=== PATIENT | female | born 1970 | race Caucasian/White ===

== ENCOUNTER → 2016-11-21 | Outpatient (CLI) | payer BC ==
--- NOTE | 2016-11-28 07:11 | MM ---
Reason for exam: screening (asymptomatic). Last mammogram was performed 13 years ago. Physical Findings: A clinical breast exam by your physician is recommended on an annual basis and results should be correlated with mammographic findings. MG Screening Mammo w CAD Bilateral CC and MLO view(s) were taken. No prior studies available for comparison. The breast tissue is heterogeneously dense. This may lower the sensitivity of mammography. Finding: There are diffuse/scattered calcifications consistent with sclerosing adenosis. ASSESSMENT: Benign, BI-RAD 2 RECOMMENDATION: Routine screening mammogram of both breasts in 1 year.
== END | disposition home or self-care (01) ==
LOC: RADMAMWWP 08:58
PROVIDERS: ATTEND Family Medicine
DX: Z12.31 Encounter for screening mammogram for malignant neoplasm of breast (principal)

== ENCOUNTER → 2017-03-18 | Outpatient (CLI) | payer BC ==
--- NOTE | 2017-03-19 07:41 | USB ---
Reason for exam: clinical finding. Indicated problem(s): lump or thickening in both breasts. Physical Findings: Nurse Summary: Patient complains of left breast lump x 2 weeks, doctor felt lump in the right breast (nurse mj). US Breast BILAT Right breast ultrasound includes all four quadrants, the retroareolar region and axilla. Finding demonstrates a 1.0 x 0.9 x 0.6cm cystic lesion at 5 o'clock, a 0.7 x 0.9 x 0.5cm cystic lesion at 8 o'clock and a 1.4 x 1.2 x 1.2cm mixed lesion at 10 o'clock. Left breast ultrasound includes all four quadrants, the retroareolar region and axilla. Finding demonstrates a 0.4 x 0.4 x 0.3cm hypoechoic lesion at 9 o'clock, a 2.0 x 2.3 x 1.3cm cystic lesion at 1 o'clock and a 0.6 x 0.6 x 0.3cm mixed lesion at 2 o'clock. These results were verbally communicated with the patient and result sheet given to the patient on 03/18/17. ASSESSMENT: Probably benign, BI-RAD 3 RECOMMENDATION: Ultrasound of both breasts in 6 months. Manage patient on a clinical basis.
== END | disposition home or self-care (01) ==
LOC: RADUSWWP 15:32
PROVIDERS: ATTEND Family Medicine
DX: N63.10 Unspecified lump in the right breast, unspecified quadrant (principal); N63.20 Unspecified lump in the left breast, unspecified quadrant

== ENCOUNTER 2019-06-11 07:27 | Observation (INO) | payer BC ==
[2019-06-11] MEDS ORDERED: NITROGLYCERIN SL TABS 0.4 MG TAB SUBLINGUAL STA (07:44)
[2019-06-11] MEDS ORDERED: ASPIRIN 81 MG PO STA (07:44)
[2019-06-11 08:17] LABS: Basophils % (A) 1 %; Eosinophils # (A) 0.1 k/uL (0-0.7); Eosinophils % (A) 3 %; HCT 43.3 % (34.0-46.0); HGB 13.8 gm/dL (11.4-16.0); Lymphocytes # (A) 1.3 k/uL (1.0-4.8); Lymphocytes % (A) 38 %; MCH 28.8 pg (25.0-35.0); MCV 90.1 fL (80.0-100.0); Mean Platelet Volume 7.1; Monocytes # (A) 0.2 k/uL (0-1.0); Monocytes % (A) 6 %; Neutrophils # (A) 1.7 k/uL (1.3-7.7); Neutrophils % (A) 50 %; Platelet Count 282 k/uL (150-450); RDW 12.3 % (11.5-15.5); WBC 3.4 k/uL (3.8-10.6)
--- NOTE | 2019-06-11 08:17 | XR ---
EXAMINATION TYPE: XR chest 2V DATE OF EXAM: 06/11/2019 COMPARISON: NONE HISTORY: Chest pain TECHNIQUE: Frontal and lateral views of the chest are obtained. FINDINGS: There is no focal air space opacity, pleural effusion, or pneumothorax seen. The cardiac silhouette size is within normal limits. The osseous structures are intact. Mild degenerative vargas e of the spine. IMPRESSION: No acute cardiopulmonary process.
[2019-06-11 08:22] LABS: Partial Thromboplastin Time 25.5 sec (22.0-30.0); Prothrombin Time 10.6 sec (9.0-12.0)
[2019-06-11 08:24] LABS: ALT 20 U/L (4-34); AST 26 U/L (14-36); African American GFR (CKD) >90 (>60 ml/min/1.73 sqM); Albumin 4.4 g/dL (3.5-5.0); Alkaline Phosphatase 49 U/L (38-126); Anion Gap 9 mmol/L; Blood Urea Nitrogen 15 mg/dL (7-17); Calcium 9.5 mg/dL (8.4-10.2); Carbon Dioxide 25 mmol/L (22-30); Chloride 106 mmol/L (98-107); Glucose 89 mg/dL (74-99); Magnesium 2.2 mg/dL (1.6-2.3); Non-African American GFR(CKD) 82 (>60 ml/min/1.73 sqM); Potassium 4.1 mmol/L (3.5-5.1); Sodium 140 mmol/L (137-145); Total Bilirubin 0.8 mg/dL (0.2-1.3); Total Protein 7.3 g/dL (6.3-8.2)
[2019-06-11] MEDS ORDERED: ACETAMINOPHEN TAB 325 MG TAB PO STA (08:41)
--- NOTE | 2019-06-11 08:50 | ED ---
Chest Pain HPI - General Chief Complaint: Chest Pain Stated Complaint: chest pain Time Seen by Provider: 06/11/19 07:38 Source: patient, RN notes reviewed Mode of arrival: ambulatory Limitations: no limitations - History of Present Illness Initial Comments: 49-year-old female presents emergency Department chief complaint of chest pain. Patient states pain started this morning while driving to work he did worsen at work. She states is left-sided not exacerbated by movement or deep inspiration or shortness of breath. She has no prior cardiac disease including denies hyperlipidemia, hypertension, diabetes. Patient denies any family cardiac disease. Denies any current nausea vomiting. did state the pain radiated to her left shoulder - Related Data Home Medications Medication Instructions Recorded Confirmed Ascorbic Acid [Vitamin C] 500 mg PO DAILY 06/11/19 06/11/19 Cetirizine HCl [Zyrtec] 10 mg PO DAILY 06/11/19 06/11/19 Cholecalciferol [Vitamin D3 (25 1,000 unit PO DAILY 06/11/19 06/11/19 Mcg = 1000 Iu)] Fluticasone Nasal [place] [Flonase 1 spray EA NOSTRIL DAILY 06/11/19 06/11/19 Nasal [place]] L.acidoph,Paracasei, B.lactis 1 cap PO DAILY 06/11/19 06/11/19 [Probiotic] [place]-3 Fatty Acids/Fish Oil [Fish 1 cap PO DAILY 06/11/19 06/11/19 Oil 1,000 mg Softgel] Vitamin E 100 unit PO DAILY 06/11/19 06/11/19 Allergies Allergy/AdvReac Type Severity Reaction Status Date / Time Beef Containing Products AdvReac Nausea & Verified 06/11/19 08:32 [Beef] Vomiting & Diarrhea carrot AdvReac Nausea & Verified 06/11/19 08:32 Vomiting & Diarrhea [place] And Derivatives AdvReac Nausea & Verified 06/11/19 08:32 [[place]] Vomiting & Diarrhea Milk Containing Products AdvReac Nausea & Verified 06/11/19 08:32 Vomiting & Diarrhea GREEN BEANS AdvReac Nausea & Uncoded 06/11/19 08:32 Vomiting & Diarrhea Review of Systems ROS Statement: Those systems with pertinent positive or pertinent negative responses have been documented in the HPI. ROS Other: All systems not noted in ROS Statement are negative. EKG Findings - EKG Comments: EKG Findings:: EKG performed at 7:40 normal sinus rhythm rate of 61 HI 138 QRS 88 QT status QTC [id number] depression in inferolateral leads no prior EKG to compare to Past Medical History Past Medical History: No Reported History History of Any Multi-Drug Resistant Organisms: None Reported Past Surgical History: Hernia Repair, Hysterectomy Past Psychological History: No Psychological Hx Reported Smoking Status: Current some day smoker Past Alcohol Use History: Occasional Past Drug Use History: None Reported General Exam Limitations: no limitations General appearance: alert, in no apparent distress Head exam: Present: atraumatic, normocephalic, normal inspection Eye exam: Present: normal appearance, PERRL, EOMI. Absent: scleral icterus, conjunctival injection, periorbital swelling ENT exam: Present: normal exam, mucous membranes moist Neck exam: Present: normal inspection, full ROM. Absent: tenderness, meningismus, lymphadenopathy Respiratory exam: Present: normal lung sounds bilaterally. Absent: respiratory distress, wheezes, rales, rhonchi, stridor Cardiovascular Exam: Present: regular rate, normal rhythm, normal heart sounds. Absent: systolic murmur, diastolic murmur, rubs, gallop, clicks GI/Abdominal exam: Present: soft, normal bowel sounds. Absent: distended, tenderness, guarding, rebound, rigid Neurological exam: Present: alert, oriented X3, CN II-XII intact Skin exam: Present: warm, dry, intact, normal color. Absent: rash Course Vital Signs 06/11/19 06/11/19 06/11/19 07:30 07:56 07:59 Temperature 98.3 F Pulse Rate 71 Pulse Rate [ 58 L [place] [employer]vester ] Respiratory 20 16 Rate Blood Pressure 117/84 O2 Sat by Pulse 99 Oximetry 06/11/19 08:32 Temperature Pulse Rate 66 Pulse Rate [ [employer]vester ] Respiratory 16 Rate Blood Pressure 104/76 O2 Sat by Pulse 97 Oximetry Chest Pain MDM - MDM Patient had complete relief of her symptoms after nitro. Patient has no significant cardiac history though this is concerning for unstable angina. Patient will admitted for echocardiogram, further evaluation repeat troponin. Disposition Clinical Impression: Unstable angina Disposition: ADMITTED IP TO THIS HOSP Condition: Fair Referrals: Richard Navarrete DO [Primary Care Provider] - 1-2 days
[2019-06-11] MEDS ORDERED: NITROGLYCERIN SL TABS 0.4 MG TAB SUBLINGUAL PRN (09:58)
[2019-06-11] MEDS ORDERED: HEPARIN SODIUM,PORCINE 5,000 UNIT/ML 1 ML VIAL IV ONE (09:58)
[2019-06-11] MEDS ORDERED: HEPARIN SODIUM,PORCINE 5,000 UNIT/ML 1 ML VIAL IV PRN (09:58)
[2019-06-11] MEDS ORDERED: HEPARIN SOD,PORK IN 0.45% NACL 25,000 UNIT in 0.45% NACL 1 250ML.BAG IV SCH (10:00)
[2019-06-11 11:18] VITALS: RESP 18
--- NOTE | 2019-06-11 12:34 | ECHOF ---
Referral Reason:chest pain MEASUREMENTS -------- HEIGHT: 172.7 cm WEIGHT: 68.9 kg BP: 104/76 RVIDd: 3.3 cm (< 3.3) IVSd: 1.0 cm (0.6 - 1.1) LVIDd: 4.2 cm (3.9 - 5.3) LVPWd: 1.2 cm (0.6 - 1.1) IVSs: 1.3 cm LVIDs: 2.8 cm LVPWs: 1.5 cm LAESV Index (A-L): 26.88 ml/m Ao Diam: 2.6 cm (2.0 - 3.7) AV Cusp: 1.8 cm (1.5 - 2.6) LA Diam: 2.2 cm (2.7 - 3.8) MV EXCURSION: 18.414 mm (> 18.000) MV EF SLOPE: 128 mm/s (70 - 150) EPSS: 0.5 cm MV E Sascha: 0.80 m/s MV DecT: 146 ms MV A Sascha: 0.69 m/s MV E/A Ratio: 1.17 AR PHT: 625 ms RAP: 5.00 mmHg RVSP: 27.74 mmHg FINDINGS -------- Sinus rhythm. This was a technically good study. The left ventricular size is normal. There is mild concentric left ventricular hypertrophy. Overa ll left ventricular systolic function is normal with, an EF between 60 - 65 %. The diastolic fillin g pattern is normal for the age of the patient 8.65. The right ventricle is mildly enlarged. Normal LA size by volume 22+/-6 ml/m2. The right atrial size is normal. Interatrial and interventricular septum intact. The aortic valve was not well visualized. Trace amount of aortic regurgitation. There is no evid ence of aortic stenosis. Mild mitral regurgitation is present. Mild tricuspid regurgitation present. There is no evidence of pulmonary hypertension. The right v entricular systolic pressure, as measured by Doppler, is 27.74mmHg. There is no pulmonic regurgitation present. The aortic root size is normal. The inferior vena cava is mildly dilated. There is no pericardial effusion. CONCLUSIONS -------- 1. Sinus rhythm. 2. This was a technically good study. 3. The left ventricular size is normal. 4. There is mild concentric left ventricular hypertrophy. 5. Overall left ventricular systolic function is normal with, an EF between 60 - 65 %. 6. The diastolic filling pattern is normal for the age of the patient 8.65 7. The right ventricle is mildly enlarged. 8. Normal LA size by volume 22+/-6 ml/m2. 9. The right atrial size is normal. 10. Interatrial and interventricular septum intact. 11. The aortic valve was not well visualized. 12. Trace amount of aortic regurgitation. 13. There is no evidence of aortic stenosis. 14. Mild mitral regurgitation is present. 15. Mild tricuspid regurgitation present. 16. There is no evidence of pulmonary hypertension. 17. The right ventricular systolic pressure, as measured by Doppler, is 27.74mmHg. 18. There is no pulmonic regurgitation present. 19. The aortic root size is normal. 20. The inferior vena cava is mildly dilated. 21. There is no pericardial effusion. SET DESIGNER: Rosanne Cha RDCS
--- NOTE | 2019-06-11 14:00 | P.CRDCN ---
History of Present Illness History of present illness: HISTORY OF PRESENTING ILLNESS This is a pleasant 49-year-old female with no significant past medical history. She does smoke a cigarette a couple times a month. She denies prior history of coronary artery disease, hypertension, dyslipidemia or diabetes mellitus and does not follow with a shipboard intelligence analyst for any reason. We have been asked to see in consultation for chest pain. He states this morning while she was driving to work she developed a squeezing pain in the left precordial region with radiation to the left shoulder. She denies associated shortness of breath, dizziness, nausea, vomiting, diaphoresis or palpitations. The symptoms persisted so she came to the emergency department for evaluation. Upon arrival she was given nitroglycerin and aspirin which did relieve her symptoms. She has had no further symptoms of chest discomfort since arriving at the hospital. Echocardiogram obtained reveals preserved LV systolic function with ejection fraction 60-65%, mild MR and TR noted. DIAGNOSTICS EKG reveals sinus bradycardia heart rate of [address] changes. Chest xray negative for an acute cardiopulmonary process. Laboratory reviewed, WBC 3.4, hemoglobin 13.8, platelets 282, sodium 140, potassium 4.1, creatinine 0.85, magnesium 2.2, cardiac enzymes negative 2. She takes no daily cardiac medications. REVIEW OF SYSTEMS At the time of my exam: CONSTITUTIONAL: Denies fever or chills. CARDIOVASCULAR: Denies chest pain, shortness of breath, orthopnea, PND or palpitations. RESPIRATORY: Denies cough. GASTROINTESTINAL: Denies abdominal pain, diarrhea, constipation, nausea or vomiting. MUSCULOSKELETAL: Denies myalgias. NEUROLOGIC: Denies numbness, tingling or weakness. ENDOCRINE: Denies fatigue, weight change, polydipsia or polyurina. GENITOURINARY: Denies burning, hematuria or urgency with micturation. HEMATOLOGIC: Denies history of anemia or bleeding. PHYSICAL EXAMINATION Blood pressure 134/83 heart rate 57 afebrile and maintaining oxygen saturation on room air. CONSTITUTIONAL: No apparent distress. HEENT: Head is normocephalic. Pupils are equal, round. Sclerae anicteric. Mucous membranes of the mouth are moist. No JVD. No carotid bruit. CHEST EXAMINATION: Lungs are clear to auscultation. No chest wall tenderness is noted on palpation or with deep breathing. HEART EXAMINATION: Regular rate and rhythm. S1, S2 heard. No murmurs, gallops or rub. ABDOMEN: Soft, nontender. Positive bowel sounds. EXTREMITIES: 2+ peripheral pulses, no lower extremity edema and no calf tenderness. NEUROLOGIC EXAMINATION: Patient is awake, alert and oriented x3. ASSESSMENT Chest pain, atypical for angina. An acute coronary event has been ruled out with no EKG evidence of ischemia and negative cardiac enzymes. PLAN An acute coronary event has been ruled out. Perform stress echocardiogram to assess for stress-induced cardiac ischemia. If stress test is normal she is stable for discharge from a cardiac perspective. Thank you kindly for this consultation. Nurse Practitioner note has been reviewed, I agree with a documented findings and plan of care. Patient was seen and examined. Past Medical History Past Medical History: Osteoarthritis (OA) Additional Past Medical History / Comment(s): Sinus problems, arthritis and labral tear R hip History of Any Multi-Drug Resistant Organisms: None Reported Past Surgical History: Hernia Repair, Hysterectomy Additional Past Surgical History / Comment(s): Hiatal hernia, partial hysterectomy with bladder suspension. Past Anesthesia/Blood Transfusion Reactions: No Reported Reaction Smoking Status: Current some day smoker - Past Family History Father Family Medical History: Cancer Additional Family Medical History / Comment(s): Father of pancreatic cancer. Mother Family Medical History: No Reported History Additional Family Medical History / Comment(s): Mother is healthy Medications and Allergies Home Medications Medication Instructions Recorded Confirmed Type Ascorbic Acid [Vitamin C] 500 mg PO DAILY 06/11/19 06/11/19 History Cetirizine HCl [Zyrtec] 10 mg PO DAILY 06/11/19 06/11/19 History Cholecalciferol [Vitamin D3 (25 1,000 unit PO DAILY 06/11/19 06/11/19 History Mcg = 1000 Iu)] Fluticasone Nasal [place] [Flonase 1 spray EA NOSTRIL DAILY 06/11/19 06/11/19 History Nasal [place]] L.acidoph,Paracasei, B.lactis 1 cap PO DAILY 06/11/19 06/11/19 History [Probiotic] [place]-3 Fatty Acids/Fish Oil [Fish 1 cap PO DAILY 06/11/19 06/11/19 History Oil 1,000 mg Softgel] Vitamin E 100 unit PO DAILY 06/11/19 06/11/19 History Allergies Allergy/AdvReac Type Severity Reaction Status Date / Time Beef Containing Products AdvReac Nausea & Verified 06/11/19 08:32 [Beef] Vomiting & Diarrhea carrot AdvReac Nausea & Verified 06/11/19 08:32 Vomiting & Diarrhea [place] And Derivatives AdvReac Nausea & Verified 06/11/19 08:32 [[place]] Vomiting & Diarrhea Milk Containing Products AdvReac Nausea & Verified 06/11/19 08:32 Vomiting & Diarrhea GREEN [place] AdvReac Nausea & Uncoded 06/11/19 08:32 Vomiting & Diarrhea Physical Exam Vitals: Vital Signs Temp Pulse Pulse Pulse Resp BP BP 06/11/19 12:00 58 L 57 L 18 06/11/19 11:16 98.0 F 57 L 18 134/83 06/11/19 08:32 66 16 104/76 06/11/19 07:59 16 06/11/19 07:56 58 L 06/11/19 07:30 98.3 F 71 20 117/84 Pulse Ox 06/11/19 12:00 06/11/19 11:16 98 06/11/19 08:32 97 06/11/19 07:59 06/11/19 07:56 06/11/19 07:30 99 Intake and Output 06/10/19 06/11/19 06/11/19 22:59 06:59 14:59 Other: Voiding Method Toilet Weight 68.946 kg Results 06/11/19 07:49 06/11/19 07:49 Cardiac Enzymes 06/11/19 06/11/19 06/11/19 Range/Units 07:49 07:49 11:55 AST 26 (14-36) U/L Troponin I <0.012 <0.012 (0.000-0.034) ng/mL Coagulation 06/11/19 Range/Units 07:49 PT 10.6 (9.0-12.0) sec APTT 25.5 (22.0-30.0) sec CBC 06/11/19 Range/Units 07:49 WBC 3.4 L (3.8-10.6) k/uL RBC 4.80 (3.80-5.40) m/uL Hgb 13.8 (11.4-16.0) gm/dL Hct 43.3 (34.0-46.0) % Plt Count 282 (150-450) k/uL Comprehensive Metabolic Panel 06/11/19 Range/Units 07:49 Sodium 140 (137-145) mmol/L Potassium 4.1 (3.5-5.1) mmol/L Chloride 106 (98-107) mmol/L Carbon Dioxide 25 (22-30) mmol/L BUN 15 (7-17) mg/dL Creatinine 0.85 (0.52-1.04) mg/dL Glucose 89 (74-99) mg/dL Calcium 9.5 (8.4-10.2) mg/dL AST 26 (14-36) U/L ALT 20 (4-34) U/L Alkaline Phosphatase 49 (38-126) U/L Total Protein 7.3 (6.3-8.2) g/dL Albumin 4.4 (3.5-5.0) g/dL Current Medications Generic Name Dose Route Start Last Admin Trade Name Freq PRN Reason Stop Dose Admin Aspirin 325 mg 06/12/19 09:00 Aspirin PO DAILY ERIN Heparin Sodium (Porcine) 0 unit 06/11/19 09:58 Heparin IV Q6HR PRN Low PTT Protocol Nitroglycerin 0.4 mg 06/11/19 09:58 Nitrostat SUBLINGUAL Q5M PRN Chest Pain Intake and Output 06/10/19 06/11/19 06/11/19 22:59 06:59 14:59 Other: Voiding Method Toilet Weight 68.946 kg Patient Weight 06/12/19 06:59 Weight 68.946 kg 06/11/19 07:49 06/11/19 07:49
[2019-06-11 16:28] VITALS: BP 135/81; TEMP 98
[2019-06-11 16:41] VITALS: PULSE 58
[2019-06-12] MEDS ORDERED: ASPIRIN 325 MG TAB PO SCH (09:00)
--- NOTE | 2019-06-12 23:38 | P.HPIM ---
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 Unremarkable possible history of the active. Except some chronic pain in the right hip. 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 Also in the infrascap ular area. It also went down the left arm. The was no associated dizziness lightheadedness shortness of breath of perspiration. No fever or chills. Patient did not remember any excessive physical activity. Denies any prior cardiac activity. Given the presentation location discharge to come in to get checked out. 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 Smokes occasionally. . Physical examination: VITAL SIGNS: 98.3, 71, 20, 1 once over 84, 99% room air GENERAL: BMI 23.1 sitting up, comfortable. EYES: Pupils equal. Conjunctiva normal. HEENT: External appearance of nose and ears normal, oral cavity grossly normal. NECK: JVD not raised; masses not palpable. HEART: First and second heart sounds are normal; no edema. LUNGS: Respiratory rate normal; clear to auscultation. ABDOMEN: Soft, nontender, liver spleen not palpable, no masses palpable. PSYCH: Alert and oriented x3; mood and affect normal. Muscular skeletal: No pain in the left shoulder with movements in any direction no localized tenderness. NEUROLOGICAL: Cranial nerves grossly intact; no facial asymmetry, power and sensation grossly intact. LYMPHATICS: No lymph nodes palpable in the axilla and neck INVESTIGATIONS, reviewed in the clinical context: White count 3.4 hemoglobin 13.8 platelets 22 potassium 4.1 creatinine 0.85 Troponin I negative EKG tracing normal sinus rhythm Chest x-ray film personally reviewed by me-lung bhatt clear Assessment: -Left infraclavicular chest wall pain with some radiation to left arm, possibly musculoskeletal but cannot rule out a cardiac cause -Right hip arthritis -Occasional nicotine use in the form of cigarettes Plan: Cardiology were consulted. They ordered an echocardiogram and a stress echocardiogram. Past Medical History Past Medical History: No Reported History History of Any Multi-Drug Resistant Organisms: None Reported Past Surgical History: Hernia Repair, Hysterectomy Past Psychological History: No Psychological Hx Reported Smoking Status: Current some day smoker Past Alcohol Use History: Occasional Past Drug Use History: None Reported - Past Family History Father Family Medical History: Cancer Additional Family Medical History / Comment(s): Father of pancreatic cancer. Mother Family Medical History: No Reported History Additional Family Medical History / Comment(s): Mother is healthy Medications and Allergies Home Medications Medication Instructions Recorded Confirmed Type Ascorbic Acid [Vitamin C] 500 mg PO DAILY 06/11/19 06/11/19 History Cetirizine HCl [Zyrtec] 10 mg PO DAILY 06/11/19 06/11/19 History Cholecalciferol [Vitamin D3 (25 1,000 unit PO DAILY 06/11/19 06/11/19 History Mcg = 1000 Iu)] Fluticasone Nasal [place] [Flonase 1 spray EA NOSTRIL DAILY 06/11/19 06/11/19 History Nasal [place]] L.acidoph,Paracasei, B.lactis 1 cap PO DAILY 06/11/19 06/11/19 History [Probiotic] [place]-3 Fatty Acids/Fish Oil [Fish 1 cap PO DAILY 06/11/19 06/11/19 History Oil 1,000 mg Softgel] Vitamin E 100 unit PO DAILY 06/11/19 06/11/19 History Allergies Allergy/AdvReac Type Severity Reaction Status Date / Time Beef Containing Products AdvReac Nausea & Verified 06/11/19 08:32 [Beef] Vomiting & Diarrhea carrot AdvReac Nausea & Verified 06/11/19 08:32 Vomiting & Diarrhea [place] And Derivatives AdvReac Nausea & Verified 06/11/19 08:32 [[place]] Vomiting & Diarrhea Milk Containing Products AdvReac Nausea & Verified 06/11/19 08:32 Vomiting & Diarrhea [place] AdvReac Nausea & Uncoded 06/11/19 08:32 Vomiting & Diarrhea Physical Exam Vitals: Vital Signs Temp Pulse Pulse Resp BP Pulse Ox 06/11/19 08:32 66 16 104/76 97 06/11/19 07:59 16 06/11/19 07:56 58 L 06/11/19 07:30 98.3 F 71 20 117/84 99 Intake and Output 06/10/19 06/11/19 06/11/19 22:59 06:59 14:59 Other: Weight 68.946 kg Results CBC & Chem 7: 06/11/19 07:49 06/11/19 07:49 Labs: Abnormal Lab Results - Last 24 Hours (Table) 06/11/19 Range/Units 07:49 WBC 3.4 L (3.8-10.6) k/uL
--- NOTE | 2019-06-12 23:40 | P.DS ---
Providers Date of admission: 06/11/19 10:02 Expected date of discharge: 06/11/19 Attending physician: Jong Kent Consults: 06/11/19 09:58 Consult Physician Urgent Consulting Provider: Jhon Marquez Consult Reason/Comments: chest pain Do you want consulting provider notified?: Yes Primary care physician: Richard Navarrete 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 Navarrete. Unremarkable possible history of the active. Except some chronic pain in the right hip. 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 Also in the infrascapular area. It also went down the left arm. The was no associated dizziness lightheadedness shortness of breath of perspiration. No fever or chills. Patient did not remember any excessive physical activity. Denies any prior cardiac activity. Given the presentation location discharge to come in to get checked out. 2-D echocardiogram was unremarkable. Stress echocardiogram was negative. Troponins were negative. There is felt to be musculoskeletal. Discussed with the patient descriptors supplements as she eats healthy. No need for the same. Consultation: Dr. Pat Nugent from cardiology Physical examination: VITAL SIGNS: 66, 16, 104/76, 97% on 2 L GENERAL: Sitting up, comfortable EYES: Pupils equal. Conjunctiva normal. HEENT: External appearance of nose and ears normal, oral cavity grossly normal. NECK: JVD not raised; masses not palpable. HEART: First and second heart sounds are normal; no edema. LUNGS: Respiratory rate normal; clear to auscultation. ABDOMEN: Soft, nontender, liver spleen not palpable, no masses palpable. PSYCH: Alert and oriented x3; mood and affect normal. Muscular skeletal: No pain in the left shoulder with movements in any direction no localized tenderness. INVESTIGATIONS, reviewed in the clinical context: White count 3.4 hemoglobin 13.8 platelets 22 potassium 4.1 creatinine 0.85 Troponin I negative EKG tracing normal sinus rhythm Chest x-ray film personally reviewed by me-lung bhatt clear Stress echocardiogram-negative 2-D echo-EF 60-65% Assessment: -Left infraclavicular chest wall pain with some radiation to left arm, possibly musculoskeletal -Right hip arthritis -Occasional nicotine use in the form of cigarettes Disposition: Home Patient Condition at Discharge: Stable Plan - Discharge Summary Discharge Rx Participant: No New Discharge Prescriptions: Continue Vitamin E 100 unit PO DAILY Fluticasone Nasal [place] [Flonase Nasal [place]] 1 spray EA NOSTRIL DAILY L.acidoph,Paracasei, B.lactis [Probiotic] 1 cap PO DAILY Cholecalciferol [Vitamin D3 (25 Mcg = 1000 Iu)] 1,000 unit PO DAILY Ascorbic Acid [Vitamin C] 500 mg PO DAILY [place]-3 Fatty Acids/Fish Oil [Fish Oil 1,000 mg Softgel] 1 cap PO DAILY Cetirizine HCl [Zyrtec] 10 mg PO DAILY Discharge Medication List Ascorbic Acid [Vitamin C] 500 mg PO DAILY 06/11/19 [History] Cetirizine HCl [Zyrtec] 10 mg PO DAILY 06/11/19 [History] Cholecalciferol [Vitamin D3 (25 Mcg = 1000 Iu)] 1,000 unit PO DAILY 06/11/19 [History] Fluticasone Nasal [place] [Flonase Nasal [place]] 1 spray EA NOSTRIL DAILY 06/11/19 [History] L.acidoph,Paracasei, B.lactis [Probiotic] 1 cap PO DAILY 06/11/19 [History] [place]-3 Fatty Acids/Fish Oil [Fish Oil 1,000 mg Softgel] 1 cap PO DAILY 06/11/19 [History] Vitamin E 100 unit PO DAILY 06/11/19 [History] Follow up Appointment(s)/Referral(s): Richard Navarrete DO [Primary Care Provider] - 1-2 days Discharge Disposition: HOME SELF-CARE
--- NOTE | 2019-06-14 12:08 | ECHOS ---
STRESS ECHOCARDIOGRAM DATE OF SERVICE: 06/11/2019 INDICATIONS: Chest pain. MEDICATIONS: BASELINE HEART RATE: 56 BASELINE BLOOD PRESSURE: 152/80 MAXIMUM HEART RATE: 157 MAXIMUM BLOOD PRESSURE: 120/50 85% MPHR: 146 100% MPHR: 172 METS: 12.1 MAXIMUM STAGE REACHED: IV TOTAL EXERCISE TIME: 12 minutes CLINICAL INFORMATION: Patient was exercised for a total period of 12 minutes. The peak heart rate of 157 was noted. Maximum blood pressure of 120/50 mmHg was noted. Resting EKG shows normal sinus rhythm with normal DE interval and QRS duration and normal ST-T waves. No ST-segment depression suggestive of ischemia is noted. The baseline echocardiographic images reveals normal left ventricular chamber size with normal left ventricular systolic function. In the immediate postexercise period, normal increase in the wall thickness and contractility is noted. FINAL IMPRESSION: 1. This stress echocardiographic study is negative for stress-induced ischemia. 2. EKG portion of the stress test is not suggestive of ischemia. MMODL / IJN: [id number] /
== END 2019-06-11 18:05 | disposition home or self-care (01) ==
LOC: EC 07:27 → 1SOBS 10:02
PROVIDERS: ADMIT Hospitalist; ATTEND Hospitalist
DX: R07.89 Other chest pain (principal); M16.11 Unilateral primary osteoarthritis, right hip; I20.0 Unstable angina; Z90.711 Acquired absence of uterus with remaining cervical stump; S73.191A Other sprain of right hip, initial encounter; R00.1 Bradycardia, unspecified; Z80.0 Family history of malignant neoplasm of digestive organs; Z79.51 Long term (current) use of inhaled steroids; F17.210 Nicotine dependence, cigarettes, uncomplicated; Z79.899 Other long term (current) drug therapy; Z91.011 Allergy to milk products; Z91.018 Allergy to other foods; Y99.0 Civilian activity done for income or pay
CPT/HCPCS: 96374; 99285; 36415; 93005; 93306; 93351; 80053; 83690; 83735; 84484; 85025; 85610; 85730; 71046; G0378; J1644 ×2